=== PATIENT | female | born 1960 | race Caucasian/White ===

== ENCOUNTER 2023-10-28 13:26 | Emergency (ER) | payer OTHER ==
[2023-10-28 13:51] LABS: BASOPHILS # (AUTO) 0.1 10^3/uL (0.0-0.1); BASOPHILS % (AUTO) 0.8 %; EOSINOPHILS # (AUTO) 0.2 10^3/uL (0.0-0.7); EOSINOPHILS % (AUTO) 2.2 %; HCT - HEMATOCRIT 44.3 % (37.0-47.0); HGB - HEMOGLOBIN 14.9 g/dL (12.0-16.0); LYMPHOCYTES # (AUTO) 2.3 10^3/uL (1.5-3.5); MEAN CORPUSCULAR HEMOGLOBIN 30.1 pg (27.0-31.0); MEAN CORPUSCULAR HGB CONC 33.6 g/dL (32.0-36.0); MEAN CORPUSCULAR VOLUME 89.5 fL (81.0-99.0); MEAN PLATELET VOLUME 8.6 fL (7.9-10.8); MONOCYTES # (AUTO) 0.8 10^3/uL (0.0-1.0); MONOCYTES % (AUTO) 8.8 %; NEUTROPHILS # (AUTO) 5.8 10^3/uL (1.5-6.6); NEUTROPHILS % (AUTO) 62.7 %; PLT - PLATELET COUNT 343 10^3/uL (130-450); RED BLOOD COUNT 4.95 10^6/uL (4.20-5.40); WHITE BLOOD COUNT 9.2 x10^3/uL (4.8-10.8)
[2023-10-28 14:03] LABS: ALBUMIN 4.9 g/dL (3.2-5.5)
[2023-10-28 14:13] LABS: ALBUMIN/GLOBULIN RATIO 1.6 (1.0-2.2); BILIRUBIN,TOTAL 0.6 mg/dL (0.2-1.0); CALCIUM 9.4 mg/dL (8.5-10.3); CREATININE 1.7 mg/dL (0.6-1.3); POTASSIUM 3.9 mmol/L (3.5-4.5); TROPONIN I HIGH SENSITIVITY 7.7 ng/L (2.3-14.8)
--- NOTE | 2023-10-28 14:37 | XRAY Report ---
PROCEDURE: Chest 1V INDICATIONS: Chest Pain TECHNIQUE: One view of the chest was acquired. COMPARISON: None. FINDINGS: Surgical changes and devices: None. Lungs and pleura: Low lung volumes. No consolidation or pleural effusion. Mediastinum: Normal heart size Bones and chest wall: Degenerative changes. IMPRESSION: On this single view portable radiograph, no acute abnormality. Low lung volumes. Reviewed by: Miles Gabriel MD on 10/28/2023 2:36 PM PST Approved by: Miles Gabriel MD on 10/28/2023 2:36 PM PST Station ID: [id number]
--- NOTE | 2023-10-28 15:17 | ED Physician Documentation ---
PD HPI CHEST PAIN - Stated complaint Stated Complaint: CHEST PX,GEN WEAKNESS,SOA,NAUSEA - Chief complaint Chief Complaint: Cardiac - History obtained from History obtained from: Patient - Additional information Additional information: This is a 63-year-old female who has a history of CAD with 2 prior stents. She is on Eliquis and Plavix. She had some sort of intracardiac thrombus in 2020 and has been on Anticoagulation since then, first on Coumadin and on Eliquis over the last several months. She is here visiting from [place] as her daughter recently gave here at this hospital. She plan to stay out here for the time being to help care for the baby. The patient was walking from their house to the hospital today and during the walk she developed some substernal pressure, she went characterize it as painful but it was a pressure sensation as she was walking up a hill. When she got to a flatter part it seemed to subside and the patient continued her walk to the hospital. This was around 815 or 830 this morning. She subsequently felt very weak though had generalized weakness and felt nauseous that she presented here to the ED. She did not have any shortness of breath,No lower extremity swelling. She has been compliant with her medication. She is on Eliquis, Plavix, Bumex among others. She has a chemical production technician in [place], but was not planning to return there for the time being until her grandchild was a little bit older. Patient currently is symptom-free and has not had a recurrence of her symptoms. She states she had a stress test about a year ago and it was stable. Patient. She has her labs checked frequently due to being on Bumex, her creatinine went up as high as 2 in July that they adjust her level and it was down to 1.4 in August. Her most recent GFR has been between 28 and around 40. Patient is a retired RN. Review of Systems Constitutional: reports: Fatigue. denies: Fever, Chills, Myalgias, Weight Loss, Sweats Eyes: reports: Reviewed and negative Ears: reports: Reviewed and negative Nose: reports: Reviewed and negative Throat: reports: Reviewed and negative Cardiac: reports: Chest pain / pressure. denies: Palpitations, Pedal edema, Calf pain Respiratory: denies: Dyspnea, Cough, Wheezing GI: reports: Nausea. denies: Abdominal Pain, Vomiting : reports: Reviewed and negative Skin: reports: Reviewed and negative Musculoskeletal: reports: Reviewed and negative Neurologic: reports: Generalized weakness PD PAST MEDICAL HISTORY - Past Medical History Past Medical History: Yes Cardiovascular: HI Endocrine/Autoimmune: Type 1 diabetes, Other Musculoskeletal: Rheumatoid arthritis - Present Medications Home Medications: Ambulatory Orders Medication Instructions Recorded Confirmed Apixaban [Eliquis] 5 mg ORAL BID 10/28/23 10/28/23 Bumetanide [Bumex] 1 mg PO DAILY 10/28/23 10/28/23 Clopidogrel [Plavix] 75 mg PO DAILY 10/28/23 10/28/23 Dapagliflozin Propanediol [Farxiga] 5 mg ORAL DAILY 10/28/23 10/28/23 Estradiolvag 1 applic TOP Q3D 10/28/23 10/28/23 Fluconazole [Diflucan] 100 mg PO ONCE 10/28/23 10/28/23 Hydroxychloroquine [Plaquenil] 200 mg ORAL DAILY 10/28/23 10/28/23 Insulin Aspart (Vial) [NovoLOG 1 - 10 unit SUBQ ONCE 10/28/23 10/28/23 (VIAL FOR ED USE)] Levothyroxine [Synthroid] 88 mcg PO QDAC 10/28/23 10/28/23 Metoprolol Succinate [Kapspargo 25 mg PO QPM 10/28/23 10/28/23 Sprinkle] Montelukast [Singulair] 10 mg ORAL DAILY 10/28/23 10/28/23 Nitroglycerin [Nitrostat] 0.4 mg SL Q5MIN PRN #25 tablet 10/28/23 Pantoprazole [Protonix] 40 mg PO BID 10/28/23 10/28/23 Rituximab-Abbs [Truxima] 10 mg IV Q6M 10/28/23 10/28/23 Rosuvastatin Calcium [Crestor] 40 mg PO DAILY 10/28/23 10/28/23 Sacubitril/Valsartan [Entresto 24 1 tab ORAL BID 10/28/23 10/28/23 mg-26 mg Tablet] Spironolactone [Aldactone] 12.5 mg ORAL DAILY 10/28/23 10/28/23 cefuroxime axetiL [Ceftin] 250 mg PO Q12H 10/28/23 10/28/23 predniSONE [Deltasone] 1 tablet PO 0800 10/28/23 10/28/23 - Allergies Allergies/Adverse Reactions: Allergies Allergy/AdvReac Type Severity Reaction Status Date / Time clindamycin Allergy Rash Verified 10/28/23 13:54 - Social History Does the pt smoke?: No Smoking Status: Current every day smoker PD ED PE NORMAL - Vitals Vital signs reviewed: Yes - General General: Alert and oriented X 3, No acute distress, Well developed/nourished - HEENT HEENT: Atraumatic, Moist mucous membranes, Pharynx benign - Neck Neck: Supple, no meningeal sign, No JVD - Cardiac Cardiac: RRR, No murmur, No gallop, No rub, Strong equal pulses - Respiratory Respiratory: No respiratory distress, Clear bilaterally - Abdomen Abdomen: Normal bowel sounds, Soft, Non tender, Non distended - Derm Derm: Normal color, Warm and dry, No rash - Extremities Extremities: No deformity, No tenderness to palpate, No edema, No calf tenderness / cord - Neuro Neuro: Alert and oriented X 3 Eye Opening: Spontaneous Motor: Obeys Commands Verbal: Oriented GCS Score: 15 - Psych Psych: Normal mood, Normal affect Results - Vitals Vitals: Vital Signs - 24 hr 10/28/23 10/28/23 10/28/23 13:28 14:04 15:00 Temperature 36.9 C Heart Rate 75 72 65 Respiratory 13 20 16 Rate Blood Pressure 131/69 H 120/67 97/61 O2 Saturation 100 98 99 Oxygen O2 Source Room air - EKG (time done) No standard instances EKG releavant findings:: EKG personally interpreted by author of this note. Relevant findings are: Reviewed w/ ED attending, Dr. Gaspar. Rate: Rate (enter#) (68) Rhythm: NSR [place]: Normal Intervals: Normal MO QRS: Normal Ischemia: Q waves Compare to prior EKG: Old EKG unavailable Computer interpretation: Agree with computer - Labs Labs: Laboratory Tests 10/28/23 10/28/23 10/28/23 13:40 13:40 15:00 WBC 9.2 RBC 4.95 Hgb 14.9 Hct 44.3 MCV 89.5 MCH 30.1 MCHC 33.6 RDW 12.0 Plt Count 343 MPV 8.6 Neut # (Auto) 5.8 Lymph # (Auto) 2.3 [place] # (Auto) 0.8 Eos # (Auto) 0.2 Baso # (Auto) 0.1 Absolute Nucleated RBC 0.00 Nucleated RBC % 0.0 Sodium 136 Potassium 3.9 Chloride 101 Carbon Dioxide 27 Anion Gap 8.0 BUN 26 H Creatinine 1.7 H Estimated GFR (MDRD) 30 L Glucose 55 L* Calcium 9.4 Total Bilirubin 0.6 AST 22 ALT 16 Alkaline Phosphatase 60 Troponin I High Sens 7.7 6.4 Total Protein 8.0 Albumin 4.9 Globulin 3.1 Albumin/Globulin Ratio 1.6 Lipase 17 PD Medical Decision Making - ED course Complexity details: reviewed results, re-evaluated patient, considered differential, d/w patient ED course: 62-year-old female presented with an episode of exertional chest pain earlier today while she was walking to the hospital to visit her grandchild. The pain did alleviate with rest but she continued to feel very fatigued. On arrival here, the patient is well-appearing, no acute distress, her EKG shows no acute ischemic changes, chest x-ray is negative. We collected 2 high- sensitivity troponins spaced about 90 minutes apart and these were both within normal range. Her symptoms had started approximately 6 hours prior thus these are reassuring lab values. I have lower suspicion for PE as patient is on Eliquis. There is no signs of pneumonia or lung disease on chest x-ray. The patient may be developing a mild viral syndrome given her fatigue though this could be related to exertional angina as well. Her other labs are generally stable, her creatinine is 1.7, she has been between 1.4 and 2 over the last several months per her MyChart values that she pulled up from her phone. She therefore should continue all her regular medication and the plan is to have her call her chemical production technician tomorrow to discuss follow-up. She is visiting from [place] so if she needs more urgent follow-up then we would need to have her arrange something here but she is going to talk with her chemical production technician and see if she can return there for evaluation or not. The patient was given a prescription for nitro to use as needed and given very strict return precautions. I did review this case and the EKG with Dr. Gaspar, ED attending. Departure - Departure Disposition: 01 Home, Self Care Clinical Impression: Chest pain Qualifiers: Chest pain type: other chest pain Qualified Code(s): R07.89 - Other chest pain Condition: Good Instructions: Nitroglycerin Fast Act Dc, ED Heart Disease Risk Factors Prescriptions: Nitroglycerin [Nitrostat] 0.4 mg SL Q5MIN PRN #25 tablet PRN Reason: Chest Pain Comments: Your heart workup today is stable, you do not have any elevation in your cardiac enzyme, your troponin, your chest x-ray and EKG are stable. Your kidney function is a little bit worse than the most recent labs you had done in August but stable. You are at higher risk given your exertional symptoms and your prior history. We are going to put you on as needed nitro which you should use under the tongue if you have chest pain and if it is not relieved by the nitro you should come into the ER. I would like you to discuss with your chemical production technician tomorrow if possible at least over the phone. The recommendation would be in general to have a stress test to further evaluate the symptoms but I would like you to talk to your chemical production technician and see if they can arrange something out there when you return to [place] or if it needs to be done sooner. Please return at any point time if you have new or worsening symptoms. Forms: PCP List
[2023-10-28 16:05] VITALS: O2SAT 100
[2023-10-28 16:16] VITALS: BP 113/76
== END 2023-10-28 16:07 | disposition home or self-care (01) ==
LOC: ED 13:26
DX: R07.89 Other chest pain (principal); I25.10 Atherosclerotic heart disease of native coronary artery without angina pectoris; I25.2 Old myocardial infarction; Z79.01 Long term (current) use of anticoagulants; Z79.02 Long term (current) use of antithrombotics/antiplatelets; Z95.828 Presence of other vascular implants and grafts; F17.200 Nicotine dependence, unspecified, uncomplicated
CPT/HCPCS: 36415; 80053; 83690; 84484; 85025; 93005; 99284